=== PATIENT | male | born 2000 | race Caucasian/White ===

== ENCOUNTER 2021-06-18 14:16 | Emergency (ER) | payer BC, OTHER ==
[~2021-06-18] VITALS: Ht 175.3 cm; Wt 79.5 kg
[2021-06-18 14:32] VITALS: TEMP 98.4
[2021-06-18 16:13] LABS: STREP SCREEN NEGATIVE
[2021-06-18 16:17] LABS: MONOSCREEN NEGATIVE
[2021-06-18] MEDS ORDERED: PREDNISONE50 MG PO (16:56)
[2021-06-18 17:15] VITALS: BP 101/60; PULSE 56
== END 2021-06-18 17:16 | disposition home or self-care (01) ==
LOC: COL.ER 14:16
PROVIDERS: Physician Assistant
DX: K12.2 Cellulitis and abscess of mouth (principal)
CPT/HCPCS: J7512